=== PATIENT | female | born 2000 | race Two or more races ===

== ENCOUNTER 2022-06-02 09:41 | Emergency (ER) | payer OTHER ==
[~2022-06-02] VITALS: Ht 172.7 cm; Wt 68.0 kg
[2022-06-02 09:57] VITALS: BP 111/72
[2022-06-02] MEDS ORDERED: AMOX-430 PO (10:44)
[2022-06-02] MEDS ORDERED: TDAP [DIPH/PERTUSSIS/TET] 0.5 ML VIAL IM ONE (10:54)
[2022-06-02] MEDS: TDAP [DIPH/PERTUSSIS/TET] 0.5 ML VIAL IM ONE (10:58)
--- NOTE | 2022-06-02 11:01 | NUR ---
Patient discharged to home in stable condition. Written and verbal after care instructions given. Patient verbalizes understanding of instruction.
== END 2022-06-02 11:01 | disposition home or self-care (01) ==
LOC: ER 09:48
DX: S70.212A Abrasion, left hip, initial encounter (principal); Z79.899 Other long term (current) drug therapy; W54.0XXA Bitten by dog, initial encounter; Y93.89 Activity, other specified; Y92.89 Other specified places as the place of occurrence of the external cause; Y99.8 Other external cause status
CPT/HCPCS: 90715